=== PATIENT | female | born 1995 | race Caucasian/White ===

== ENCOUNTER 2018-01-03 19:17 | Emergency (ER) | payer OTHER ==
[~2018-01-03] VITALS: Ht 152.4 cm; Wt 45.5 kg
[2018-01-03 19:24] VITALS: BP 133/65; TEMP 98
[2018-01-03] MEDS ORDERED: DAYTRANA20 MG/9 HR TD (19:44)
[2018-01-03 19:50] VITALS: PULSE 88
== END 2018-01-03 19:55 | disposition home or self-care (01) ==
LOC: COL.ER 19:17
DX: S00.93XA Contusion of unspecified part of head, initial encounter (principal); W22.8XXA Striking against or struck by other objects, initial encounter; Y92.009 Unspecified place in unspecified non-institutional (private) residence as the place of occurrence of the external cause

== ENCOUNTER 2018-06-02 16:00 | Emergency (ER) | payer OTHER ==
[~2018-06-02] VITALS: Ht 152.4 cm; Wt 47.7 kg
[~2018-06-02 16:00] MED LIST: DAYTRANA20 MG/9 HR TD
[2018-06-02 16:11] VITALS: BP 115/70; TEMP 98.9
[2018-06-02] MEDS ORDERED: MAGIC MOUTH PO (17:05)
[2018-06-02 17:10] VITALS: PULSE 107
== END 2018-06-02 17:10 | disposition home or self-care (01) ==
LOC: COL.ER 16:00
DX: J02.9 Acute pharyngitis, unspecified (principal); H92.01 Otalgia, right ear; F90.9 Attention-deficit hyperactivity disorder, unspecified type; G43.909 Migraine, unspecified, not intractable, without status migrainosus

== ENCOUNTER 2018-06-07 21:15 | Emergency (ER) | payer OTHER ==
[~2018-06-07] VITALS: Ht 152.4 cm; Wt 47.7 kg
[~2018-06-07 21:15] MED LIST changes: +MAGIC MOUTH PO
[2018-06-07 21:21] VITALS: BP 124/71; TEMP 98.8
[2018-06-07 22:08] VITALS: PULSE 90
== END 2018-06-07 22:25 | disposition home or self-care (01) ==
LOC: COL.ER 21:15
DX: H10.9 Unspecified conjunctivitis (principal); F90.9 Attention-deficit hyperactivity disorder, unspecified type; J30.2 Other seasonal allergic rhinitis

== ENCOUNTER 2018-06-17 20:27 | Emergency (ER) | payer OTHER ==
[~2018-06-17] VITALS: Ht 152.4 cm; Wt 47.7 kg
[2018-06-17 20:35] VITALS: BP 121/72; TEMP 97.4
[2018-06-18 00:05] VITALS: PULSE 80
== END 2018-06-18 00:06 | disposition home or self-care (01) ==
LOC: COL.ER 20:27
DX: J02.9 Acute pharyngitis, unspecified (principal); R53.83 Other fatigue